=== PATIENT | female | born 1960 | race Caucasian/White ===

== ENCOUNTER 2020-02-24 06:47 | Day surgery (SDC) | payer OTHER, BC ==
[2020-02-22 15:12] VITALS: BMI 29.7
[~2020-02-24 06:47] MED LIST: BUPIVACAINE HCL/PF 0.25% (2.5MG/ML) 10 ML VIAL IJ ONE
--- OUTSIDE RECORDS SUMMARY | 2020-02-24 06:58 | XMS ---
:1960 Author Organization [facility] Care Team Providers Name Role Phone ADA MANCILLA MD S Unavailable Unavailable MD PAMELA E Unavailable Unavailable MD PAMELA E Unavailable Unavailable ADA MANCILLA MD S Unavailable Unavailable ADA MANCILLA MD S Unavailable Unavailable ADA MANCILLA MD S Unavailable Unavailable ADA MANCILLA MD S Unavailable Unavailable MD PAMELA E Unavailable Unavailable MD PAMELA E Unavailable Unavailable ADA MANCILLA MD S Unavailable Unavailable PAMELA TOVAR MD E Unavailable Unavailable MD PAMELA E Unavailable Unavailable MD Ada S Unavailable MD Ada S Unavailable MD Ada S Unavailable MD Ada S Unavailable MD Ada S Unavailable MD Ada S Unavailable MD Ada S Unavailable MD Ada S Unavailable MD Ada S Unavailable MD Courtney Santiago Unavailable MD Courtney Santiago Unavailable MD Courtney Santiago Unavailable MD Courtney Santiago Unavailable Re-disclosure Warning The records that you are about to access may contain information from federally- assisted alcohol or drug abuse programs. If such information is present, then the following federally mandated warning applies: This information has been disclosed to you from records protected by federal confidentiality rules (42 CFR part 2). The federal rules prohibit you from making any further disclosure of this information unless further disclosure is expressly permitted by the written consent of the person to whom it pertains or as otherwise permitted by 42 CFR part 2. A general authorization for the release of medical or other information is NOT sufficient for this purpose. The Federal rules restrict any use of the information to criminally investigate or prosecute any alcohol or drug abuse patient.The records that you are about to access may contain highly sensitive health information, the redisclosure of which is protected by Article 27-F of the [facility] Public Health law. If you continue you may haveaccess to information: Regarding HIV / AIDS; Provided by facilities licensed or operated by the [facility] Office of Mental Health; or Provided by the [facility] Office for People With Developmental Disabilities. If such information is present, then the following [facility] mandated warning applies: This information has been disclosed to you from confidential records which are protected by state law. State law prohibits you from making any further disclosure of this information without the specific written consent of the person to whom it pertains, or as otherwise permitted by law. Any unauthorized further disclosure in violation of state law may result in a fine or skilled nursing sentence or both. A general authorization for the release of medical or other information is NOT sufficient authorization for further disclosure. Allergies and Adverse Reactions Type Description Substance Reaction Status Data Source(s ) D Omnicef Omnicef hives [facility] NONE NONE [facility] Encounters Encounter Providers Location Date Indications Data Source(s ) P Attender: MD PEARSON CS XR-MAWIC 02[place]23/[place] [facility] [place] [facility] 11:28:[address] [facility] MDAttender: MD STINSON [facility] monica CABALLERO MDAttender: MD GLORIA CABALLERO MDAttender: MD Gloria Caballero Attender: MD GLORIA CABALLERO MDAttender: MD GLORIA CABALLERO MDAttender: MD GLORIA CABALLERO MDReferrer: MD GLORIA CABALLERO MD annual P Attender: MD GLORIA QUINONES XR-MAWIC 01/25/2020 [place] [facility] MDAttender: 03:16:51 PM EDT [facility] MDAttender: MD GLORIA CABALLERO MDAttender: MD GLORIA CABALLERO MDAttender: MD Gloria CaballeroAttender: MD GLORIA CABALLERO MDAttender: MD GLORIA CABALLERO MDReferrer: MD GLORIA CABALLERO MD annual P Attender: MD Gloria QUINONES XR-MAWIC 01/25/2020 [place] [facility] [place]Sunday[place]ender: 11:46:19 AM EDT [facility] MDAttender: MD GLORIA CABALLERO MDAttender: MD GLORIA CABALLERO MDAttender: MD GLORIA CABALLERO MDAttender: MD GLORIA CABALLERO MDAttender: MD GLORIA YEEHER MDReferrer: MD GLORIA CABALLERO MD annual V Attender: MD Mike QUINONES XR-GI MOB 10/20/2018 08:44:05 CS WYATT [place] Cain LinAttender: MD MCKEON AM EDT Health system LINAttender: MD MIKE olivarez LINAttender: MD MIKE SANTIAGO PNPAttender: MD MIKE Robertsonender: MD MIKE Robertsonender: MD MIKE Sifuenteser: MD MIKE SANTIAGO CS V Attender: MD MIKE QUINONES XR-GI MOB 10/20/2018 08:44:00 [facility] MD Mckeon AM EDT - 10/20/2018 [facility] LinAttender: MD MCKEON 11:59:00 PM EDT [place] PAMELA PNPAttender: MD MIKE Marlow: MD MIKE Marlow: MD MIKE Robertsonender: MD MIKE SANTIAGOReferrer: MD MIKE SANTIAGO CS Patient discharged. P Attender: MD MIKE QUINONES XR-GI MOB 10/07/2018 02:06:47 [facility] LINAttender: MD MCKEON PM EDT Health system LINAttender: MD Mike olivarez LinAttender: MD MIKE Robertsonender: MD MIKE Robertsonender: MD MIKE Marlow: MD MIKE SANTIAGO PNPReferrer: MD MIKE SANTIAGO CS Insurance Providers Payer name Policy type Policy ID Covered Covered constitution party's Policy P alphonse / Coverage constitution party ID relationship to Fisher Inf ormation type fisher [facility] [id number] [facility] [id number] [facility] [id number] SP [id number] [place] [id number] SP [id number] HEALTH PLANS [facility] [id number] [facility] [id number] [facility] [id number] [facility] [id number] [facility] [id number] [facility] [id number] [facility] [id number] HEALTH PLAN Problems, Conditions, and Diagnoses Code Display Name Description Problem Type Effective Dates Data Source(s) Z86.010 Personal Personal history Diagnosis 10/20/2018 [place] [facility] - history of of colonic polyps 08:44:00 AM EDT [facility] colonic polyps [facility] C enter Z12.11 Encounter for Encounter for Diagnosis 10/20/2018 [place] [facility] - screening for screening for 08:44:00 AM EDT [facility] malignant malignant [facility] neoplasm of neoplasm of colon colon Results ID Date Data Source [id number] 02/20/2020 10:30:00 AM EDT [facility] Name Value Range Interpretation Description Data Sup porting Code Source(s) Document(s ) SARS [facility] coronavirus 2 RNA This lab was ordered by JUDITH [facility]ITAL and reported by [facility]. ID Date Data Source [id number] 02/03/2020 09:52:00 AM EDT [facility] Name Value Range Interpretation Description Data Sup porting Code Source(s) Document(s ) SARS [facility] coronavirus 2 RNA This lab was ordered by [facility] and reported by [facility]. Procedure
[2020-02-24] MEDS ORDERED: MIDAZOLAM HCL 2 MG/2 ML SINGLE DOSE VIAL ONE (08:06)
[2020-02-24] MEDS ORDERED: BUPIVACAINE HCL/PF 2.5 MG/ML - 30 ML VIAL IJ ONE (08:24)
[2020-02-24] MEDS ORDERED: BUPIVACAINE HCL/PF 0.25% (2.5MG/ML) 10 ML VIAL IJ ONE (09:28)
[2020-02-24] MEDS ORDERED: ONDANSETRON 4 MG/2 ML VIAL IVPUSH PRN (10:01)
[2020-02-24] MEDS ORDERED: oxyCODONE HCL 5 MG TABLET PO PRN ×2 (10:01)
[2020-02-24] MEDS ORDERED: LACTATED RINGERS SOLUTION 1,000 ML IV SCH (10:15)
[2020-02-24] MEDS ORDERED: oxyCODONE HCL 5 MG TABLET ONE (10:52)
[2020-02-24 12:13] VITALS: TEMP 97.7
[2020-02-24 12:22] VITALS: BP 138/68; PULSE 56
--- NOTE | 2020-02-27 08:40 | OP ---
DATE OF OPERATION: 02/24/2020 SURGEON: Jonnie Bazzi MD STEWARD/STEWARDESS BANQUET: OMA Olivares The PA listed above was present and assisted at surgery. Their presence was absolutely medically necessary for the completion of the procedure. They helped hold the arthroscopy, pass instruments (and implants when indicated) and the procedure could not have been completed without their assistance. PREOPERATIVE DIAGNOSES: 1. Right knee medial meniscus tear. 2. Right knee cartilage injury. 3. Right knee synovitis. POSTOPERATIVE DIAGNOSES: 1. Right knee medial meniscus tear. 2. Right knee cartilage injury. 3. Right knee synovitis. PROCEDURE: 1. Right knee arthroscopy partial meniscectomy of medial meniscus (CPT code 71991). 2. Right knee arthroscopy with chondroplasty and abrasoplasty (CPT code 06368). 3. Right knee arthroscopy with synovectomy (CPT code 94753). FINDINGS: 1. Medial meniscus no evidence of tear. 2. Lateral meniscus body, posterior horn tear inner 1/3. 3. Synovitis patellofemoral medial and lateral notch area. 4. Central grade 3 cartilage injury 4 cm x 2 cm femoral condyle. 5. ACL and PCL intact. 6. Minimal cartilage injury lateral joint line. 7. Central grade 2 cartilage injury patella with grade 2 to 4 changes lateral facet, patellofemoral trochlea. PROCEDURE: Informed consent was obtained. The patient came to the operating room, where the lower extremity was prepped and draped in a sterile fashion. A tourniquet was placed on the upper thigh, but not inflated. Using standard arthroscopic technique, a lateral incision and portal was made to allow for introduction of the camera into the suprapatellar bursa. This was then taken to the medial joint line, where under direct visualization, a medial incision and portal was made. Excessive synovium noted in the medial, lateral and patellofemoral and notch area was removed by an upbiter, shaver and Bovie cautery. This was found to bring in inflammatory tissue into the joint surface, a source of pain and dysfunction. Probing of the medial and lateral meniscus found tears, as described in the findings. These were removed with the upbiter and shaver and taken back to a stable rim. Grade 2 to 3 degenerative changes were treated with a chondroplasty, removing all flaking surfaces with low-setting Bovie along the periphery to prevent further flaking. Grade 4 changes, as noted, were treated with an abrasoplasty, creating a bleeding surface at the bone/cartilage interface. Aggressive debridement with shaver/pedro created bleeding surface. Micro fracture also done when indicated in findings. All areas of the knee were once again reexamined. The knee was then drained and a single suture was placed in all portals. A sterile dressing was placed and the patient was transferred to the recovery room without complication. JONNIE BAZZI M.D. [id number]
--- NOTE | 2020-02-28 18:04 | PATH ---
Surgical Pathology Report Patient Name: REECE ZAIDI [facility]. Rec. #: [id number] /Age/Gender: 1960 (Age: 59) / F Account: [id number] Location: [facility] AMBUL[facility]ORY Taken: 02/24/2020 Received: 02/24/2020 Reported: 02/28/2020 Physicians: Jonnie Irene M.D. Specimen(s) Received RIGHT KNEE SHAVINGS Clinical History Internal derangement right knee Final Diagnosis KNEE SHAVINGS, RIGHT, ARTHROSCOPY, PARTIAL MEDIAL/LATERAL MENISCECTOMY, CHONDROPLASTY, SYNOVECTOMY: FRAGMENTS OF CARTILAGE, BONE, DENSE FIBROCONNECTIVE TISSUE, ADIPOSE TISSUE, AND SYNOVIUM. Electronically Signed Deedee Jaramillo M.D. Gross Description Received in formalin, labeled "right knee shaving," is a 3.5 x 2.4 x 0.4 cm. aggregate of black-yellow soft tissue fragments. A chain sales representative portion is submitted in one cassette. 02/27/2020 [facility]02/27/2020
== END 2020-02-24 11:15 | disposition home or self-care (01) ==
LOC: FASU 06:47
PROVIDERS: ATTEND Orthopaedic Surgery
PROC: 0SBC4ZZ Excision of Right Knee Joint, Percutaneous Endoscopic Approach (ICD-10-PCS; 2020-02-24)
PROC: 0SBC4ZZ Excision of Right Knee Joint, Percutaneous Endoscopic Approach (ICD-10-PCS; 2020-02-24)
PROC: 0SBC4ZZ Excision of Right Knee Joint, Percutaneous Endoscopic Approach (ICD-10-PCS; principal; 2020-02-24 09:13)
DX: S83.241A Other tear of medial meniscus, current injury, right knee, initial encounter (principal); S83.8X1A Sprain of other specified parts of right knee, initial encounter; M65.861 Other synovitis and tenosynovitis, right lower leg; X58.XXXA Exposure to other specified factors, initial encounter; Y93.9 Activity, unspecified; Y92.9 Unspecified place or not applicable
CPT/HCPCS: 88304-TC; 94760